=== PATIENT | female | born 1945 | race Hispanic/Latino ===

== ENCOUNTER 2019-03-09 08:27 | Day surgery (SDC) | payer MEDICARE ==
[~2019-03-09] VITALS: Ht 160 cm; Wt 63.5 kg
[2019-03-09] VITALS (8 sets, daily range): BP systolic 99–139; BP diastolic 43–61
[~2019-03-09 08:27] MED LIST: SODIUM CHLORIDE 0.9% 1000ML 1,000 ML IV ONE
[2019-03-09] MEDS ORDERED: CALCIUM (12:13)
[2019-03-09] MEDS ORDERED: ALEN70TA10 PO (12:13)
[2019-03-09] MEDS ORDERED: ATOR10TA69 PO (12:13)
[2019-03-09] MEDS ORDERED: ONDA4TAB4 PO (12:13)
[2019-03-09] MEDS ORDERED: FERS325 PO (12:13)
[2019-03-09] MEDS ORDERED: [UNRECOGNIZED DRUG - SUPPLY] (12:13)
[2019-03-09] MEDS ORDERED: LACT10PA5 PO (12:13)
[2019-03-09] MEDS ORDERED: FOLIC ACID PO (12:13)
[2019-03-09] MEDS ORDERED: DEXTROMETHORPHAN (12:13)
[2019-03-09] MEDS ORDERED: INSLAN SQ (12:13)
[2019-03-09] MEDS ORDERED: SPIR25TA6 PO (12:13)
[2019-03-09] MEDS ORDERED: IPRA3AMP24 IH (12:13)
[2019-03-09] MEDS ORDERED: TYLENOL PO (12:13)
[2019-03-09] MEDS ORDERED: TYL3 PO (12:13)
[2019-03-09] MEDS ORDERED: OMEP40CA37 PO (12:13)
[2019-03-09] MEDS ORDERED: INSU100C6 SQ (12:13)
[2019-03-09] MEDS ORDERED: PROPOFOL 10 MG/ML 20ML VIAL IV ONE (12:24)
[2019-03-09] MEDS ORDERED: LIDOCAINE HCL 1% 20 ML VIAL ONE (12:24)
--- NOTE | 2019-03-09 13:04 | NUR ---
REPORT REPORT GIVEN TO NURSE Dionte RMAACHANDRAN LVN AT [facility]. COPY OF INSTRUCTIONS, REPORT, MEDS RECONCILIATION GIVEN TO SON TO GIVE TO NURSE AT [facility].
== END 2019-03-09 13:15 | disposition home or self-care (01) ==
LOC: DAH 08:27 → ENDO 08:27 → EDSTATUS 09:09 → ENDO 13:15
PROVIDERS: ATTEND Internal Medicine
DX: K31.7 Polyp of stomach and duodenum (principal); K29.50 Unspecified chronic gastritis without bleeding; K31.89 Other diseases of stomach and duodenum; I85.00 Esophageal varices without bleeding; E78.5 Hyperlipidemia, unspecified; E11.9 Type 2 diabetes mellitus without complications; I10 Essential (primary) hypertension; M81.0 Age-related osteoporosis without current pathological fracture; Z90.710 Acquired absence of both cervix and uterus; Z98.890 Other specified postprocedural states
CPT/HCPCS: 43236; 43237; 43239; 82948 ×2; 88305; 88342; 93005; A4606; J2704; J7030; 43259

== ENCOUNTER → 2021-08-29 | Outpatient (CLI) | payer MEDICARE ==
[~2021-08-29] MED LIST changes: +ALEN70TA80 PO; +ATOR10TA69 PO; +CALCIUM; +DEXTROMETHORPHAN; +FERS325 PO; +FOLIC ACID PO; +INSLAN SQ; +INSU100C6 SQ; +IPRA3AMP24 IH; +LACT10PA5 PO; +OMEP40CA21 PO; +ONDA4TAB4 PO; -SODIUM CHLORIDE 0.9% 1000ML 1,000 ML IV ONE; +SPIR25TA6 PO; +TYL3 PO; +TYLENOL PO; +[UNRECOGNIZED DRUG - SUPPLY]
== END | disposition home or self-care (01) ==
LOC: RAH 08:55
PROVIDERS: ATTEND Neuromusculoskeletal Medicine & OMM
DX: S22.009A Unspecified fracture of unspecified thoracic vertebra, initial encounter for closed fracture (principal); M51.26 Other intervertebral disc displacement, lumbar region; X58.XXXA Exposure to other specified factors, initial encounter; Y93.89 Activity, other specified; Y92.89 Other specified places as the place of occurrence of the external cause; Y99.8 Other external cause status
CPT/HCPCS: 72148